=== PATIENT | female | born 1975 | race Caucasian/White ===

== ENCOUNTER → 2017-06-07 | Day surgery (SDC) | payer BC ==
[~2017-06-07] VITALS: Ht 160 cm; Wt 58.8 kg
[~2017-06-07] MED LIST: *morphine SULFATE 4 MG/ML PERIprocedure ONLY ONE; BUPIVACAINE/EPINEPHRINE 0.25% PF 30 ML VIAL ONE; CHLORHEXIDINE GLUCONATE 2 % 1 PACK (2 CLOTHS) TOPICAL PRN; DEXAMETHASONE SOD PHOS 4 MG/ML VIAL IV ONE; DO NOT ADM ANY ANTICOAGULANT DRUGS PRN; GLYCOPYRROLATE 1 MG/5 ML SYRINGE IV PUSH ONE; INSULIN HUMAN REGULAR 1,000 UNITS/10 ML VIAL SQ PRN; LACTATED RINGER'S 1000 ML IV PRN; LIDOCAINE HCL 1% PF 5 ML SYRINGE OTHER ONE; METOPROLOL TARTRATE 25 MG TAB PO PRN; NEOSTIGMINE 5 MG/5 ML SYRINGE IV PUSH ONE; ONDANSETRON HCL 4 MG/2 ML VIAL IV ONE; ONDANSETRON HCL 4 MG/2 ML VIAL IV PUSH ONE; PHENYLEPH/NS 1000 MCG/10 ML SYR IV ONE; POVIDONE IODINE 5% (ANTISEPSIS KIT) 4 APPLICATIONS EACH NARE PRN; PROPOFOL 200 MG/20 ML AMP IV ONE; ROCURONIUM INJ 50 MG/5 ML SYRINGE IV PUSH ONE; SODIUM CHLORID 0.9% 500 ML IV PRN; ceFAZolin 2 GM PREMIX 50 ML IV SCH; oxyCODONE/ACETAMINOPHEN 5 MG/325 MG TAB PO ONE
[2017-06-07 14:03] LABS: AUTOMATED NEUTROPHIL # 3.1 TH/MM3 (1.8-7.7); BASOPHIL # 0.2 TH/MM3 (0-0.2); BASOPHIL % 2.2 % (0.0-2.0); EOSINOPHIL # 0.5 TH/MM3 (0-0.4); EOSINOPHIL % 6.2 % (0.0-4.0); HEMATOCRIT 41.3 % (35.0-46.0); HEMOGLOBIN 13.9 GM/DL (11.6-15.3); LYMPH % 41.7 % (9.0-44.0); LYMPHOCYTE # 3.2 TH/MM3 (1.0-4.8); MEAN CELL VOLUME 85.8 FL (80.0-100.0); MEAN CORPUSCULAR HEMOGLOBIN 28.9 PG (27.0-34.0); MEAN CORPUSCULAR HGB CONC 33.7 % (32.0-36.0); MEAN PLATELET VOLUME 9.4 FL (7.0-11.0); MONO % 9.4 % (0.0-8.0); MONOCYTE # 0.7 TH/MM3 (0-0.9); NEUT % 40.5 % (16.0-70.0); PLATELET COUNT 279 TH/MM3 (150-450); RED BLOOD COUNT 4.82 MIL/MM3 (4.00-5.30); RED CELL DISTRIBUTION WIDTH 13.3 % (11.6-17.2); WHITE BLOOD COUNT 7.6 TH/MM3 (4.0-11.0)
[2017-06-07 14:16] LABS: BICARBONATE 28.2 MEQ/L (21.0-32.0); CREATININE 0.67 MG/DL (0.50-1.00)
--- NOTE | 2017-06-07 14:59 | HHI.PR ---
Immediate Post Op Note Procedure Date: Jun 07, 2017 Pre Op Diagnosis: reducible ventral hernia Post Op Diagnosis: same Surgeon: Stanley Arshad MD Forensic Examiner(s): see or sheet Procedure: lap ventral hernia repair Findings: moderate size ventral hernia Complications: none Specimen(s) removed: none Estimated blood loss: 5cc Anesthesia: General Drains: None Patient to: PACU Patient Condition: Good Stanley Arshad MD Jun 07, 2017 14:59
[2017-06-07 18:00] VITALS: BP 136/76; PULSE 98; RESP 18; TEMP 98.5; O2SAT 98
--- NOTE | 2017-06-08 08:03 | MP ---
cc: SRUTHI ARSHAD MD DATE OF OPERATION 06/07/2017 PREOPERATIVE DIAGNOSIS Ventral hernia. POSTOPERATIVE DIAGNOSIS Ventral hernia. PROCEDURE PERFORMED Laparoscopic ventral hernia repair with mesh [address] Sruthi Arshad ANESTHESIA GETA. IV FLUIDS See anesthesia sheet. ESTIMATED BLOOD LOSS 5 mL. DRAINS None. COMPLICATIONS None. WOUND CLASSIFICATION Clean. FINDINGS Incarcerated ventral hernia containing mesenteric fat and falciform ligament. SPECIMENS None. INDICATION The patient is a 42-year-old female who presented with persistent supraumbilical ventral hernia. She states some discomfort which has been going on for several months and continued to get worse. Decision was made for hernia repair. DETAILS OF PROCEDURE The patient was taken to the operating suite, placed in supine position. She was prepped and draped in the usual sterile fashion after induction of general endotracheal anesthesia. Brief time-out was done stating the correct patient, procedure, surgical site and we were all in agreement with this. Attention was directed to the left upper quadrant where a small stab/roseann incision was made with an 11-blade after injection of local anesthetic. The visible 5-mm port was introduced down to the fascia and penetrated this and obtained 15-mm pneumoperitoneum. The abdomen was identified noting and showing that there was no evidence of injury and secondarily the end of the falciform ligament noted to be incarcerated with omental fat into a ventral hernia defect. This was reduced using harmonic scalpel after placement of two other ports, one left lower quadrant port followed by a left lower quadrant inferior to both 5-mm ports. Dissection was begun, again reducing the contents and dissecting out the hernia sac. This was excised and removed. The falciform ligament was then taken down. The hernia defect was noted to be small approximately at the neck about 1 cm and then mushroomed out into the subcutaneous fatty tissues. A 12 x 12-cm [place] mesh was obtained and traced out in order to comfortably placed in the abdomen. [place]ora sutures were used as trans-fascial sutures and taacked to the mesh itself at four corners, 1 o'clock, 3 o'clock, 6 o'clock and 9 o'clock positions. The mesh was then rolled up and placed through one of the 5-mm trocar ports, the trans-fascial sutures. A small stab roseann incision was made again at the 1 o'clock, 3 o'clock, 6 o'clock and 9 o'clock positions and brought up in the abdomen and tied externally. Prior to this the hernia defect was closed with a #2 Vicryl in [id number] fashion and this was again done with a suture passer device through a stab/roseann incision right over the hernia itself. Next the mesh was fashioned up against the anterior abdominal wall again with trans-fascial sutures at four spots. The tacking was done to the periphery of the mesh. The insufflation was turned to 11 mm pneumoperitoneum as well. Following this the abdomen was desufflated. Trocars were removed. Local anesthetic was injected at all trocar port sites in all trans-fascial suture sites. Ports were then closed with 4-0 Monocryl sutures in subcuticular fashion, again local anesthetic injected. The lap and instrument counts were correct at the end of the procedure. The patient tolerated procedure. No intraoperative complication. The patient was extubated and taken to Recovery. MD LISANDRO Conley/EARNESTINE /6:30 PM /7:22 AM
== END | disposition home or self-care (01) ==
LOC: HSDC 13:10
PROVIDERS: ATTEND Surgery
DX: K43.6 Other and unspecified ventral hernia with obstruction, without gangrene (principal); Z01.818 Encounter for other preprocedural examination
CPT/HCPCS: 00752; 49653; 80048; 84702; 85025; C1781; J1100; J2270; J2370; J2405; J2710